=== PATIENT | male | born 1965 | race Caucasian/White ===

== ENCOUNTER → 2023-11-14 09:21 | Outpatient (REF) | payer SELFPAY | LOC: RAD 09:21 | DX: Z18.10 Retained metal fragments, unspecified (principal) | CPT/HCPCS: 70030 ==

== ENCOUNTER → 2024-08-22 06:26 | Day surgery (SDC) | payer BC, SELFPAY ==
[2024-08-22 09:41] LABS: Glucose - Point of Care 196 mg/dl (70-99)
== END ==
LOC: GI 06:26
PROVIDERS: ATTENDING PHYSICIAN Internal Medicine Gastroenterology; FAMILY PHYSICIAN Family Medicine
DX: Z12.11 Encounter for screening for malignant neoplasm of colon (principal); R19.5 Other fecal abnormalities; K64.8 Other hemorrhoids; K57.30 Diverticulosis of large intestine without perforation or abscess without bleeding; D12.3 Benign neoplasm of transverse colon; D12.4 Benign neoplasm of descending colon
CPT/HCPCS: 45385; 88305; 82962

== ENCOUNTER 2024-11-03 10:27 | Emergency (ER) | payer BC, SELFPAY ==
[2024-11-03 10:47] VITALS: BP 153/90
--- NOTE | 2024-11-03 11:40 | ED.GENMED ---
History of Present Illness
General
Chief Complaint: DVT/Possible Blood Clot
Source: patient
Exam Limitations: none
Time Seen by Provider: 11/03/24 11:27
History of Present Illness
History of Present Illness:
58-year-old male insulin-dependent diabetic presents with complaints of persistent redness and pain to the anterior left herrmann. This is been ongoing for about 2 weeks. He just finished a 7-day course of Keflex without any relief. He denies chills
but dorsalis currently. About 7 weeks ago, patient had a lung biopsy. He is not anticoagulated. He was sent here for evaluation for DVT. No known trauma to the herrmann. No other complaints at this time
Past History
Past History
ED Past Medical History: HTN and NIDDM
ED Past Surgical History: Orthopedic
Social History
Tobacco: Non-smoker
Alcohol: None
Drug: None
Personal:
Living: with family
Employment: Employed
Phy Exam
Physical Exam
Physical Exam:
General: Well-appearing male nontoxic no acute respiratory distress
HEENT: Normocephalic atraumatic
Heart: Regular rate and rhythm no murmurs
Lungs: Clear no wheeze
Skin: Erythema and induration noted to the anterior left herrmann this is warm to the touch and tender without underlying fluctuance or lymphangitic streaking. No open or draining wounds
Vascular: 2+ dorsalis pedis pulse left foot
Neurologic: Good sensation left foot
Course
Orders/Labs/Results
Orders:
Orders
11/03/24 10:28
US Periph Venous LOWER Ext LT Urgent
Comment:
Reason For Exam: r/o dvt
11/03/24 12:10
Complete Blood Count/With Diff Urgent
Comprehensive Metabolic Panel Urgent
Abnormal Lab Results
11/03/24
12:10
Absolute Monos (auto) 0.7 H 10^3/uL
(0.1-0.6)
BUN 22 H mg/dl
(9-20)
Glucose 138 H mg/dl
(70-99)
Total Bilirubin 2.0 H mg/dl
(0.2-1.3)
11/03/24 12:10
11/03/24 12:10
Vital Signs
Initial and Last Documented VS:
Initial Vital Signs
Temp Pulse Resp BP Pulse Ox
98.1 F 112 16 153/90 98
11/03/24 10:47 11/03/24 10:47 11/03/24 10:47 11/03/24 10:47 11/03/24 10:47
Last Documented Vital Signs
Temp Pulse Resp BP Pulse Ox
98.1 F 112 16 153/90 98
11/03/24 10:47 11/03/24 10:47 11/03/24 12:00 11/03/24 10:47 11/03/24 10:47
MDM/Problems Addressed
Differential Diagnosis Includes:
Patient sent in to evaluate for DVT of left leg given left leg erythema. Ultrasound is pending however clinically I suspect more of cellulitis given the tenderness to the anterior herrmann with induration. Will check labs.
*Critical Care Note
Total Time (30-74mins, 75-104mins- exclusive of procedures): Not Applicable
Update Note
Update Note:
Patient reevaluated after ultrasound. Ultrasound negative for DVT. Shared decision making occurred. Offered to treatment options including changing oral antibiotics at home to cover for staph related infection such as doxycycline. Also discussed
role for admission secondary to the diabetic history and failure of Keflex. Patient decided to go home. With normal labs feeling well otherwise I think this is reasonable to have a trial of doxycycline. Return precautions were given. He was
aware of this as was a significant other.
ED Attending Note
-
Portions of this chart may have been created with voice recognition software.� Occasional wrong word or��sound alike� substitutions may have occurred due to the inherent limitations of voice recognition software.
Discharge Plan
Departure
Patient Disposition: Home (Routine Discharge)
Date of Disposition: 11/03/24
Time of Disposition: 12:45
Patient with high blood pressure during this ER visit?: No
Discharge Problem:
Cellulitis
Instructions: Cellulitis (Skin Infection), Adult (DC)
Prescriptions:
New
doxycycline hyclate 100 mg tablet
100 mg PO BID Qty: 14 0RF
No Action
sulfamethoxazole-trimethoprim 1 TABLET tablet
1 tab PO BID Qty: 13 0RF
Activity Restrictions/Additional Instructions:
As discussed your exam is consistent with cellulitis. Take doxycycline twice a day. Please return here for increasing redness swelling pain fever vomiting or other concerning findings. There is no evidence of DVT or blood clot on today's workup.
Interventions
Interventions:
*Risk Screen - Suicide Last Done: 11/03/24 10:47
*General Assessment Last Done: 11/03/24 10:47
*Neglect/Abuse Screening Last Done: 11/03/24 12:17
ED- Fall Risk Assessment Last Done: 11/03/24 12:15
*ED COVID-19 Vaccine History Last Done: 11/03/24 10:47
ED- Cardiac Assessment Last Done: 11/03/24 12:15
ED- Pulmonary Assessment Last Done: 11/03/24 12:15
ED-Peripheral Vascular Assessment Last Done: 11/03/24 12:15
ED-Skin Assessment Last Done: 11/03/24 12:15
Discharge Date and Time
Print Language: CROATIAN
[2024-11-03 12:24] LABS: % Basophils 0.2 % (0-2); % Eosinophils 0.1 % (0-6); % Immature Granulocytes 0.4 % (0-0.5); % Lymphocytes 21.2 % (20.5-51.1); % Monocytes 8.5 % (1.7-9.3); % Neutrophils 69.6 % (42.2-75.2); Absolute Lymphocytes 1.8 10^3/uL (1.2-3.4); Absolute Monocytes 0.7 10^3/uL (0.1-0.6); Hematocrit 49.1 % (39.0-52.0); Hemoglobin 16.9 g/dL (13.0-18.0); Mean Corp Hgb Conc. 34.4 g/dL (33.0-37.0); Mean Corpuscular Hgb 28.1 pg (27.0-31.0); Mean Corpuscular Volume 81.7 fL (80.0-94.0); Nucleated Red Blood Cells % 0 % (-); Red Blood Cell Count 6.01 10^6/uL (4.70-6.10); Red Cell Dist. Width 13.8 % (11.5-14.5); White Blood Cell Count 8.6 10^3/uL (4.8-10.8)
[2024-11-03 12:35] LABS: ALT (SGPT) 33 U/L (0-50); AST (SGOT) 41 U/L (17-59); Albumin 4.8 g/dl (3.5-5.0); Alkaline Phosphatase 43 U/L (38-126); Blood Urea Nitrogen 22 mg/dl (9-20); Calcium 9.5 mg/dl (8.4-10.2); Carbon Dioxide 27 mmol/L (22-30); Chloride 101 mmol/L (98-107); Glucose 138 mg/dl (70-99); Potassium 4.6 mmol/L (3.5-5.1); Sodium 137 mmol/L (135-145); Total Protein 7.8 g/dl (6.3-8.2); eGFR > 60.00
[2024-11-03 14:10] LABS: Mean Platelet Volume 10.8 fL (7.4-10.4)
[2024-11-03 14:11] LABS: Platelet Count 97 10^3/uL (130-400)
== END 2024-11-03 12:59 | disposition home or self-care (01) ==
LOC: EMR 10:27
PROVIDERS: Physician Assistant; EMERGENCY PHYSICIAN Emergency Medicine; FAMILY PHYSICIAN Family Medicine
DX: L03.116 Cellulitis of left lower limb (principal); E11.9 Type 2 diabetes mellitus without complications; Z79.4 Long term (current) use of insulin; I10 Essential (primary) hypertension
CPT/HCPCS: 99284; 80053; 85025; 93971